=== PATIENT | male | born 1950 | race Caucasian/White ===

== ENCOUNTER 2016-11-24 08:07 | Emergency (ER) | payer MEDICARE ==
[~2016-11-24] VITALS: Ht 172.7 cm; Wt 69.0 kg
[~2016-11-24 08:07] MED LIST: ASPI81TA82 PO; CRES10TA PO; FISHCAP PO; PLAV75TA PO; TAB-TAB PO
[2016-11-24 08:12] VITALS: BP 132/67; PULSE 58; RESP 20; TEMP 97.4; O2SAT 95
[2016-11-24] MEDS ORDERED: HYDR200T3 PO (08:24)
[2016-11-24] MEDS ORDERED: ASPI-110 PO (08:24)
[2016-11-24] MEDS ORDERED: MULT-135 PO (08:24)
[2016-11-24] MEDS ORDERED: FISH500C PO (08:24)
[2016-11-24] MEDS ORDERED: PLAV75TA29 PO (08:24)
[2016-11-24] MEDS ORDERED: ROSU10 PO (08:24)
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
[2016-11-24] MEDS ORDERED: MORPHINE SULFATE 8 MG/ML INJ IV PUSH ONE (08:45)
[2016-11-24 08:57] LABS: AUTOMATED NEUTROPHIL # 3.3 TH/MM3 (1.8-7.7); BASOPHIL % 0.5 % (0.0-2.0); EOSINOPHIL # 0.3 TH/MM3 (0-0.4); EOSINOPHIL % 5.9 % (0.0-4.0); HEMO FLAGS DIFF FINAL; LYMPHOCYTE # 1.3 TH/MM3 (1.0-4.8); MEAN CELL VOLUME 91.6 FL (80.0-100.0); MEAN CORPUSCULAR HEMOGLOBIN 30.8 PG (27.0-34.0); MEAN CORPUSCULAR HGB CONC 33.6 % (32.0-36.0); MONO % 8.2 % (0.0-8.0); NEUT % 61.4 % (16.0-70.0); PLATELET COUNT 240 TH/MM3 (150-450); RED CELL DISTRIBUTION WIDTH 13.1 % (11.6-17.2); WHITE BLOOD COUNT 5.3 TH/MM3 (4.0-11.0)
[2016-11-24 09:00] LABS: APTT (PATIENT) 26.8 SEC (24.3-30.1); INTERNATIONAL NORMALIZED RATIO 0.9 RATIO; PROTHROMBIN TIME - PATIENT 10.1 SEC (9.8-11.6)
[2016-11-24 09:09] LABS: BICARBONATE 27.3 MEQ/L (21.0-32.0); POTASSIUM 4.6 MEQ/L (3.5-5.1)
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
[2016-11-24] MEDS ORDERED: PROPOFOL 500 MG/50 ML BTL IV ONE ×2 (09:45→11:45)
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
[2016-11-24 10:15] VITALS: O2SAT 99
[2016-11-24 10:45] VITALS: O2SAT 99
--- NOTE | 2016-11-24 11:53 | RADRPT ---
EXAM DATE/TIME: 11/24/2016 10:41 [facility] COMPARISON: ELBOW LEFT LIMITED (AP & LAT), November 24, 2016, 8:46. ELBOW LEFT LIMITED (AP & LAT), November 24, 2016, 10:5 3. INDICATIONS : Post reduction. MEDICAL HISTORY : None. SURGICAL HISTORY : None. ENCOUNTER: Subsequent ACUITY: 1 day PAIN SCORE: Non-responsive. LOCATION: Left elbow. FINDINGS: Single lateral view of the left elbow. Persistent elbow dislocation CONCLUSION: Elbow dislocation again noted. Abhinav Hanson MD on November 24, 2016 at 11:51 Board Certified Radiologist. This report was verified electronically.
--- NOTE | 2016-11-24 12:18 | RADRPT ---
EXAM DATE/TIME: 11/24/2016 10:53 [facility] COMPARISON: ELBOW LEFT LIMITED (AP & LAT), November 24, 2016, 8:46. INDICATIONS : Adjustment of prior post reduction. MEDICAL HISTORY : None. SURGICAL HISTORY : None. ENCOUNTER: Subsequent ACUITY: 1 day PAIN SCORE: Non-responsive. LOCATION: Left elbow. FINDINGS: 2 views left elbow. Radius and ulna dislocation again noted. Fracture of the radial head is seen with 7 mm displacement. CONCLUSION: Elbow dislocation again seen. Radial head fracture. Abhinav Hanson MD on November 24, 2016 at 12:16 Board Certified Radiologist. This report was verified electronically.
[2016-11-24 12:57] VITALS: O2SAT 100; O2SAT 33
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
--- NOTE | 2016-11-24 13:51 | RADRPT ---
EXAM DATE/TIME: 11/24/2016 12:58 [facility] COMPARISON: ELBOW LEFT LIMITED (AP & LAT), November 24, 2016, 10:53. INDICATIONS : Adjustment of prior post reduction. MEDICAL HISTORY : None. SURGICAL HISTORY : None. ENCOUNTER: Subsequent ACUITY: 1 day PAIN SCORE: 10/10 LOCATION: Left elbow FINDINGS: 2 views left elbow. Alignment now grossly near-anatomic. Multiple bone fragments seen anteriorly. Rad ial head fracture noted. CONCLUSION: Interval reduction of elbow dislocation. Abhinav Hanson MD on November 24, 2016 at 13:48 Board Certified Radiologist. This report was verified electronically.
[2016-11-24] MEDS ORDERED: MORPHINE SULFATE 4 MG/ML INJ IV PUSH ONE (14:30)
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
[2016-11-24] MEDS ORDERED: PERC5TAB12 PO (16:06)
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
== END 2016-11-24 16:38 | disposition home or self-care (01) ==
LOC: NEPE 08:07
DX: S52.122A Displaced fracture of head of left radius, initial encounter for closed fracture (principal); S52.042A Displaced fracture of coronoid process of left ulna, initial encounter for closed fracture; S00.81XA Abrasion of other part of head, initial encounter; I10 Essential (primary) hypertension; I25.2 Old myocardial infarction; I25.10 Atherosclerotic heart disease of native coronary artery without angina pectoris; M06.9 Rheumatoid arthritis, unspecified; V19.9XXA Pedal cyclist (driver) (passenger) injured in unspecified traffic accident, initial encounter; Y93.55 Activity, bike riding; Z79.02 Long term (current) use of antithrombotics/antiplatelets; Z79.82 Long term (current) use of aspirin
CPT/HCPCS: 24620; 70450; 73070; 73200; 80048; 85025; 85610; 85730; 86850; 86900; 86901; 86920; 86922; 96374; 96376; 99156; 99157; 99285; J2270; J3010